=== PATIENT | female | born 1940 | race African-American/Black ===

== ENCOUNTER 2016-09-25 15:05 | Emergency (ER) | payer OTHER ==
[~2016-09-25] VITALS: Ht 165.1 cm; Wt 66.8 kg
[~2016-09-25 15:05] MED LIST: AMLODIPINE BESY10 MG PO; CLINDAMYCIN HC300 MG PO; FLEXERIL5 MG PO; GLIPIZIDE10 MG PO; LISINOPRIL2.5 MG PO; LORTAB 5-325 M1 EACH PO; MECLIZINE HCL25 MG PO; METFORMIN HCL500 MG PO; METOPROLOL SUCC25 MG PO; MOBIC7.5 MG PO; MOTRIN600 MG PO; NORCO 5/3251 TABLET PO; ST. JOSEPH ASPI81 MG PO
[2016-09-25 17:21] LABS: HEMATOCRIT 35.8 % (36.0-46.0); MCH 30.9 PG (29.0-34.0); MCV 93.7 FL (83-99); RBC DIS.WIDTH-CV 12.7 % (11.8-14.6); RBC DIS.WIDTH-SD 43.3 % (39-53); RED BLOOD COUNT 3.82 M/uL (3.80-5.20); WHITE BLOOD COUNT 10.5 K/uL (4.1-10.2)
[2016-09-25 17:27] LABS: INTER. NORMALIZED RATIO 1.1; PROTHROMBIN TIME 12.3 SEC (10.2-12.9)
[2016-09-25 17:30] LABS: PTT 31.8 SEC (25-37)
[2016-09-25 17:31] LABS: CHLORIDE 104 mEq/L (99-109)
[2016-09-25 17:32] LABS: POTASSIUM 4.1 mEq/L (3.7-5.4); SODIUM 141 mEq/L (136-147)
[2016-09-25 17:33] LABS: GLUCOSE 96 mg/dL (70-99)
[2016-09-25 17:35] LABS: ANION GAP 10 MEQ/L (2-14)
[2016-09-25 17:37] LABS: GFR ESTIMATE (CALCULATED) > 59 mL/min/
[2016-09-25 17:38] LABS: UREA NITROGEN (BUN) 14 mg/dL (9-23)
[2016-09-25 17:40] LABS: TROP-I INTERPRETATION NEGATIVE; TROPONIN-I < 0.01 ng/mL (0.0-0.30)
[2016-09-25 18:11] LABS: MEAN PLAT.VOLUME 10.6 uM^3 (9.5-12.4); PLAT.SUFFICIENCY ADEQUATE; PLATELET COUNT 140 K/uL (156-360)
[2016-09-25 20:39] LABS: CREATINE KINASE 149 IU/L (1-294); TOTAL CK 149 IU/L (1-294)
[2016-09-25 20:45] LABS: TROP-I INTERPRETATION NEGATIVE; TROPONIN-I < 0.01 ng/mL (0.0-0.30)
[2016-09-25 20:46] LABS: CK-MB 2.3 ng/mL (0.0-4.9)
[2016-09-25] MEDS ORDERED: ULTRAM50 MG PO (21:35)
[2016-09-25] MEDS ORDERED: LIDODERM 5% P1 PATCH TD (21:35)
[2016-09-25 21:55] VITALS: BP 124/69
== END 2016-09-25 21:58 | disposition home or self-care (01) ==
LOC: EME 15:05
PROVIDERS: Emergency Medicine
DX: M25.511 Pain in right shoulder (principal); R07.9 Chest pain, unspecified; I10 Essential (primary) hypertension; E11.9 Type 2 diabetes mellitus without complications; Z79.84 Long term (current) use of oral hypoglycemic drugs; Z79.82 Long term (current) use of aspirin
CPT/HCPCS: 71020; 73030; 80048; 82550 91; 82553; 84484; 85027; 85610; 85730; 93005; 99281; 99284